=== PATIENT | male | born 1960 | race African-American/Black ===

== ENCOUNTER 2016-10-21 19:26 | Emergency (ER) | payer BC ==
[~2016-10-21] VITALS: Ht 162.6 cm; Wt 77.1 kg
[2016-10-21] MEDS ORDERED: NKM (19:43)
[2016-10-21 19:45] VITALS: BP 155/84
[2016-10-21] MEDS ORDERED: Bactrim DS (160mg/800mg) tab ORAL ONE (20:00)
[2016-10-21] MEDS ORDERED: Cephalexin 500mg cap ORAL ONE (20:00)
[2016-10-21] MEDS ORDERED: CEPHALEXIN500 MG ORAL (20:03)
[2016-10-21] MEDS ORDERED: BACTRIM DS TAB1 EAC1 ORAL (20:03)
[2016-10-21 20:10] VITALS: BP 155/84
--- NOTE | 2016-10-21 21:19 | Emergency Room Report ---
History of Present Illness General Chief Complaint: Skin Rash/Abscess Source: Patient Present Illness HPI The patient is a 56-year-old male presenting for possible infection. He noticed a lesion to the left lower leg one week prior which was red and then grew in size. He states that he did open and released white discharge. It has since decreased in size. He then noticed a similar lesion to the left inguinal area. He denies any discharge from this area. Pain is a 9/10 dull ache and does not radiate. Worse with touch. He denies any fever or chills. He denies any other symptoms including N, V, dysuria, abd pain, CP, SOB Allergies: Coded Allergies: No Known Allergies (Unverified , 10/21/16) Patient History Past Medical History: see triage record Pertinent Family History: none Reviewed Nursing Documentation: PMH: Agreed, PSxH: Agreed Nursing Documentation-PMH Past Medical History: No Stated History Review of Systems All Other Systems: negative except mentioned in HPI Physical Exam Vital Signs Date Time Temp Pulse Resp B/P Pulse Ox O2 Delivery O2 Flow Rate FiO2 10/21/16 19:37 100.0 103 18 153/89 98 Room Air Sp02 EP Interpretation: reviewed, normal General Appearance: no apparent distress, alert, GCS 15, non-toxic Head: normocephalic, atraumatic Eyes: bilateral eye PERRL, bilateral eye normal inspection ENT: hearing grossly normal, normal pharynx, no angioedema, normal voice Neck: full range of motion, supple/symm/no masses Respiratory: chest non-tender, lungs clear, normal breath sounds, speaking full sentences Musculoskeletal: back normal, gait/station normal, normal range of motion, tender - TTP over the abscess of the L lower leg and L inguinal region Neurologic: alert, oriented x3, responsive, motor strength/tone normal, sensory intact, speech normal Psychiatric: judgement/insight normal, memory normal, mood/affect normal, no suicidal/homicidal ideation Skin: normal turgor, rash - L lower leg has abscess with central scab. No fluctuance. TTP. Lymphatic: no adenopathy Medical Decision Making PA Attestation Dr. Flanagan is my supervising physician. Patient management was discussed with my supervising physician Diagnostic Impression: Primary Impression: Abscess ER Course The patient is a 56 old male presenting for possible infection Ddx considered include but not limited to insect bite, abscess, hidradenitis suppurativa, contact dermatitis, eczema, cellulitis Physical exam: afebrile. NAD There is a 1 cm in diameter erythematous elevated lesion with underlying induration. No DC. TTP. L lower medial leg: Abscess with central scab. No fluctuance. The patient is given a prescription for Keflex and Bactrim and needs to follow up with primary doctors. He is given indications to return for incision and drainage. ER precautions are given Last Vital Signs Date Time Temp Pulse Resp B/P Pulse Ox O2 Delivery O2 Flow Rate FiO2 10/21/16 20:10 100.0 95 18 155/84 98 Room Air Status: improved Disposition: HOME, SELF-CARE Condition: Improved Scripts Trimethoprim/Sulfamethoxazole 160/800* (BACTRIM DS TABLET*) 1 Each Tablet 1 TAB ORAL TWICE A DAY, #14 TAB Prov: LB TIERNEY 10/21/16 Cephalexin* (KEFLEX*) 500 Mg Capsule 500 MG ORAL EVERY 12 HOURS, #14 CAP 0 Refills Prov: LB [email or web address] 10/21/16 Referrals: NOT CHOSEN [facility]/,REFERRING (PCP) Patient Instructions: Abscess Additional Instructions: I discussed my findings with the patient. All questions and concerns have been answered. Treatment and medication compliance have been addressed. I advised the patient that they need to follow up with PMD in 3-5 days. Return to ED if symptoms worsen, new symptoms arise, or if needed for any reason. Patient verbalized understanding of discharge instructions. LB TIERNEY Oct 21, 2016 21:19
[2016-10-25] MEDS ORDERED: BACITRACIN-P28.35 GM TP (20:57)
== END 2016-10-21 20:10 | disposition home or self-care (01) ==
LOC: EMR 20:01
DX: L02.416 Cutaneous abscess of left lower limb (principal)
CPT/HCPCS: 10060; 99284

== ENCOUNTER → 2016-10-25 | Emergency (ER) | payer BC ==
[~2016-10-25] VITALS: Ht 162.6 cm; Wt 77.1 kg
[~2016-10-25] MED LIST: BACITRACIN-P28.35 GM TP; BACTRIM DS TAB1 EAC1 ORAL; Bacitracin Oint UD TOPIC ONE; CEPHALEXIN500 MG ORAL; NKM
[2016-10-25 20:16] VITALS: BP 137/89
--- NOTE | 2016-10-25 20:55 | Emergency Room Report ---
History of Present Illness General Chief Complaint: Skin Rash/Abscess Source: Patient Present Illness HPI 56-year-old male presents to the emergency department for followup evaluation of his recently treated infected spider bite of the lower extremity and cyst in the left inguinal area. Patient reports that erythema has progressed. Denies fevers or chills states that he believes the symptoms are improving. Patient states he has been taking antibiotics as prescribed. Patient states that spider bite in the left lower extremity is no longer hard and is now soft.Pt. denies joint pain, hx of immune compromise, or STD's. Patient states that overall he is doing well and he believes medications are helping. Patient states he does not have PCP and decided to followup here. Allergies: Coded Allergies: No Known Allergies (Unverified , 10/21/16) Patient History Past Medical History: see triage record Past Surgical History: none Pertinent Family History: none Immunizations: UTD Reviewed Nursing Documentation: PMH: Agreed, PSxH: Agreed Nursing Documentation-PMH Past Medical History: No Stated History Review of Systems All Other Systems: negative except mentioned in HPI Physical Exam Vital Signs Date Time Temp Pulse Resp B/P Pulse Ox O2 Delivery O2 Flow Rate FiO2 10/25/16 20:08 99.0 85 17 137/89 98 Room Air Sp02 EP Interpretation: reviewed, normal General Appearance: no apparent distress, alert, GCS 15, non-toxic Head: normocephalic, atraumatic Eyes: bilateral eye normal inspection, bilateral eye PERRL ENT: hearing grossly normal, normal voice Neck: full range of motion Respiratory: lungs clear, normal breath sounds, speaking full sentences Cardiovascular #1: regular rate, rhythm Musculoskeletal: back normal, gait/station normal, normal range of motion, non- tender, no calf tenderness Neurologic: alert, oriented x3, responsive, motor strength/tone normal, sensory intact, speech normal Psychiatric: judgement/insight normal, memory normal, mood/affect normal Skin: normal color, no rash, warm/dry, well hydrated, other - 1cm fluctuant abscess to the left medial calf. 1mm diameter of surrounding erythema (mild/ scant) there is scab from draining pus. no increased temperature to palpation. Lymphatic: inguinal node tender (L) - draining abscess also nearby 0.6cm in size, no erythema or increased temperature to palpation. Medical Decision Making PA Attestation Dr. Varghese is my supervising Physician whom patient management has been discussed with. Diagnostic Impression: Primary Impression: Abscess Additional Impression: Encounter for wound re-check ER Course 56-year-old male presents to the emergency department for followup evaluation of his recently treated infected spider bite of the lower extremity and cyst in the left inguinal area. Patient reports that erythema has progressed. Denies fevers or chills states that he believes the symptoms are improving. Patient states he has been taking antibiotics as prescribed. Patient states that spider bite in the left lower extremity is no longer hard and is now soft. Patient states that overall he is doing well and he believes medications are helping. Patient states he does not have PCP and decided to followup here. Ddx considered but are not limited to cellulitis, abscess, cystic acne, necrotizing fasciitis, insect bite. Vital signs: are WNL, pt. is afebrile H&PE are most consistent with healing abscess to the left medial calf. lesion in the groin area is suspicious for LGV --- Pt. denies hx of STD or penile d/c, pt. states he has had a monogamous partner for almost 2 years. pt. re-assures that his symptoms are improving. pt. declines additional treatment at this time. ORDERS: none required at this time, the diagnosis is clinical ED INTERVENTIONS: - verbal consent was obtained from pt. to de-roof the abscess on the left lower extremity. After sterilizing with Betadine. pt. was draped in a sterile fashion and the abscess was de-roofed to allow continued drainage using a No.11 blade scalpel. pt. tolerated well, no anesthesia was required. - bacitracin and sterile dressing was applied. Encouraged warm compresses to the lower extremity, d/w pt. to finish all abx. d/w pt. that if the lesion in the groin area does not heal completely that he should be treated for LGV. d/w pt. follow up with pcp, and that I will provide a list of primary care clinics since he does not have a pcp. DISCHARGE: At this time pt. is stable for d/c to home. Will provide printed patient care instructions, and any necessary prescriptions. Care plan and follow up instructions have been discussed with the patient prior to discharge. Last Vital Signs Date Time Temp Pulse Resp B/P Pulse Ox O2 Delivery O2 Flow Rate FiO2 10/25/16 20:16 99.0 85 17 137/89 98 Room Air Disposition: HOME, SELF-CARE Condition: Stable Scripts Bacitracin/Polymyxin B Sulfate (BACITRACIN-POLYMYXIN OINTMENT) 28.35 Gm Oint...g. 1 APPLIC TP BID, #28.3 GM Prov: Aileen Johnson 10/25/16 Patient Instructions: Abscess Additional Instructions: Take medications as directed. Follow up with a Primary Care Provider in 3-5 days, even if your symptoms have resolved. --Please review list of primary care clinics, if you do not already have a primary care provider Return sooner to ED if new symptoms occur, or current symptoms become worse. - Please note that this Emergency Department Report was dictated using [employer] teacher technology software, occasionally this can lead to erroneous entry secondary to interpretation by the dictation equipment. Aileen Johnson Oct 25, 2016 20:55
[2016-10-25 21:04] VITALS: BP 137/89
== END | disposition home or self-care (01) ==
LOC: EMR 21:12
DX: L02.416 Cutaneous abscess of left lower limb (principal); L02.214 Cutaneous abscess of groin; Z48.00 Encounter for change or removal of nonsurgical wound dressing
CPT/HCPCS: 99283